=== PATIENT | female | born 1945 | race Asian ===

== ENCOUNTER → 2020-05-22 14:38 | Outpatient (BNVA) | payer MEDICAID, SELFPAY | PROVIDERS: PCP Internal Medicine; Referring Provider Internal Medicine; Visit Provider Internal Medicine Pulmonary Disease | DX: R05 Cough (principal) | CPT/HCPCS: 99203 ==

== ENCOUNTER → 2020-06-05 09:52 | Outpatient (BNVA) | payer MEDICAID, SELFPAY | PROVIDERS: Visit Provider Internal Medicine Pulmonary Disease | DX: R05 Cough (principal) | CPT/HCPCS: 99213 ==

== ENCOUNTER → 2020-06-10 16:02 | Outpatient (BNVA) | payer MEDICAID, SELFPAY | PROVIDERS: Visit Provider Internal Medicine | DX: R05 Cough (principal); I10 Essential (primary) hypertension; K21.9 Gastro-esophageal reflux disease without esophagitis; Z79.899 Other long term (current) drug therapy; Z79.51 Long term (current) use of inhaled steroids | CPT/HCPCS: 99212 ==

== ENCOUNTER → 2020-07-01 13:46 | Outpatient (BNVA) | payer MEDICAID, SELFPAY | PROVIDERS: PCP Internal Medicine; Visit Provider Internal Medicine Pulmonary Disease | DX: R05 Cough (principal); Z79.899 Other long term (current) drug therapy | CPT/HCPCS: 99212 ==

== ENCOUNTER 2020-07-22 09:04 | Outpatient (REF) | payer MEDICAID, SELFPAY | END 2020-07-22 09:05 | disposition home or self-care (01) | LOC: HO.RESP 09:04 | PROVIDERS: Visit Provider Internal Medicine Pulmonary Disease | DX: Z13.89 Encounter for screening for other disorder (principal) ==

== ENCOUNTER → 2020-09-02 11:58 | Outpatient (BNVA) | payer MEDICAID, SELFPAY | PROVIDERS: PCP Internal Medicine; Visit Provider Internal Medicine Pulmonary Disease ==

== ENCOUNTER 2020-09-20 07:49 | Outpatient (REF) | payer MEDICAID, SELFPAY ==
[2020-09-20 08:43] LABS: MANUAL DIFF FLAG NO
[2020-09-20 08:50] LABS: Basophils Percent Auto 0.7 % (0-2); Eosinophils Absolute Auto 0.1 X10*3/uL (0.0-0.4); Eosinophils Percent Auto 2.4 % (0-4); Hematocrit 41.6 % (37-47); Hemoglobin 13.6 g/dl (12.0-16.0); Imm Gran Abs Auto 0.01 X10*3/uL (0.00-0.03); Imm Gran Pct Auto 0.2 % (0.0-0.4); Lymphocytes Absolute Auto 2.5 X10*3/uL (1.2-4.9); Lymphocytes Percent Auto 42.9 % (20-40); Mean Corpuscular HGB Conc 32.7 g/dl (31.0-35.0); Mean Corpuscular Hemoglobin 28.3 pg (27.0-33.0); Mean Corpuscular Volume 86.5 fL (80-98); Mean Platelet Volume 9.4 fL (9.4-12.3); Monocytes Absolute Auto 0.6 X10*3/uL (0.1-1.2); Monocytes Percent Auto 9.5 % (2-11); Neutrophils Absolute Auto 2.6 X10*3/uL (2.0-8.3); Neutrophils Percent Auto 44.3 % (45-73); Platelet Count 248 X10*3/uL (160-400); Red Blood Count 4.81 X10*6/uL (4.20-5.50); Red Cell Distribution Width 13.2 % (11.0-16.0); White Blood Count 5.8 X10*3/uL (4.8-10.8)
[2020-09-20 09:11] LABS: Alanine Aminotransferase 20 U/L (0-31); Albumin Level 4.3 g/dL (3.5-5.0); Alkaline Phosphatase 74 U/L (39-117); Anion Gap 15 (12-20); Aspartate Amino Transferase 18 U/L (5-31); Bilirubin Total 0.7 mg/dL (0.0-1.0); Blood Urea Nitrogen 13 mg/dL (9-16); Calcium 9.4 mg/dL (8.4-10.2); Carbon Dioxide 25 mmol/L (22-29); Chloride 106 mmol/L (96-108); Cholesterol 159 mg/dL; Estimated Glomerular Filt Rate > 60; Glucose Fasting 103 mg/dL (60-99); HDL Cholesterol 33 mg/dL; LDL Cholesterol Calculated 109 mg/dl; Potassium 4.1 mmol/L (3.3-5.1); Sodium 142 mmol/L (135-145); Total Protein 7.1 g/dL (6.5-8.0); Triglycerides 86 mg/dL
== END 2020-09-20 07:50 | disposition home or self-care (01) ==
LOC: HO.LAB 07:49
PROVIDERS: PCP Internal Medicine; Visit Provider Internal Medicine
DX: E03.8 Other specified hypothyroidism (principal); E78.00 Pure hypercholesterolemia, unspecified; R05 Cough
CPT/HCPCS: 36415; 80053; 80061; 82306; 84443; 85025

== ENCOUNTER → 2020-11-20 11:41 | Outpatient (BNVA) | payer MEDICAID, SELFPAY | PROVIDERS: PCP Internal Medicine; Visit Provider Internal Medicine Pulmonary Disease ==

== ENCOUNTER → 2020-11-25 14:18 | Outpatient (BNVA) | payer MEDICAID, SELFPAY | PROVIDERS: PCP Internal Medicine; Visit Provider Internal Medicine ==

== ENCOUNTER → 2020-12-23 15:41 | Outpatient (BNVA) | payer MEDICAID, SELFPAY | PROVIDERS: PCP Internal Medicine; Visit Provider Internal Medicine ==

== ENCOUNTER 2021-01-26 07:45 | Day surgery (SDC) | payer MEDICAID, SELFPAY ==
[2021-01-20 15:41] VITALS: BMI 29.0
--- NOTE | 2021-01-21 13:13 | MHC.SHP ---
Pre-Procedural Eval Section A The patient is an INPATIENT: No The History & Physical has been completed within 30 days and I have reviewed it.: Yes Section B Chief Complaint: Cataracts Right Eye Allergies: Allergies Allergy/AdvReac Type Severity Reaction Status Date / Time No Known Allergies Allergy Verified 01/20/21 15:22 Plan Diagnosis/Plan: Unchanged I have reviewed the history and physical and performed a pertinent physical examination on my patient. No changes have occurred unless specified.
--- NOTE | 2021-01-23 09:19 | HO.ANESPROP2 ---
Documented by User: Rebecca Brunner 01/23/21 09:20 HPI - Anesthesia Eval Consult details Narrative: 75yo F for Right Cataract Extraction IOL Insertion PCP cleared No prev cataract on record PMFSH Active Problems Active Problems: All Active Problems (Updated 01/20/21 @ 15:46 by Inez Ray) Chronic cough (Acute) Dysphagia (Acute) Bronchitis (Acute) Allergic rhinitis (Acute) GERD (gastroesophageal reflux disease) (Acute) Hypertension (Acute) Past Medical History Medical History Allergic rhinitis Bronchitis COVID-19 vaccine series completed Elevated cholesterol GERD (gastroesophageal reflux disease) Hypertension Hypothyroid Surgical History Surgical History No significant past surgical history Social History Social History Are you a primary student career development specialist to a significant other at home: No Do you presently have visiting nurse or other home services: No Patient Tobacco Use Status: Never used Tobacco Second Hand Smoke Exposure: No Use of substances other than those prescribed or required for medical reasons: No Have you been hit, kicked, punched, or otherwise hurt by someone within the past year? If so, by whom?: No Are you DNR?: No Advance Directives: No Advance Directives Information Provided: No Advance Directives on File: No Recently lost weight without trying: No Eating poorly because of decreased appetite: No Nutrition Risks: No Nutritional Risk Patient : No Meds Allergies Allergy/AdvReac Type Severity Reaction Status Date / Time No Known Allergies Allergy Verified 01/20/21 15:22 Home Medications Medication Instructions Recorded Confirmed Last Taken Type albuterol sulfate 90 mcg/actuation 1 inh INHALATION QID 05/22/20 01/20/21 Unknown History aerosol inhaler amlodipine 5 mg tablet 5 mg PO DAILY 05/22/20 01/20/21 Unknown History atorvastatin 20 mg tablet 20 mg PO DAILY 05/22/20 01/20/21 Unknown History cholecalciferol (vitamin D3) 1,250 1,250 mcg PO QWEEK 05/22/20 01/20/21 Unknown History mcg (50,000 unit) capsule fluticasone furoate 50 INHALATION 05/22/20 Unknown History mcg/actuation blister powder for inhalation levothyroxine 75 mcg tablet 75 mcg PO DAILY 05/22/20 01/26/21 01/26/21 History uwkcpbcwybqj-Oh-cllk-minerals 1 tab PO DAILY 05/22/20 01/20/21 Unknown History fluticasone propionate 1 spray INTRANASAL BID 01/20/21 01/20/21 Unknown History loratadine [Allergy Relief 1 tab PO DAILY 01/20/21 01/20/21 Unknown History (loratadine)] Exam Exam Date and Time: January 23, [id number] Height,Weight and Vital Signs: Height 5 ft 3 in Weight 74.389 kg Assessment and Plan Assessment Anesthesia Assessment: Chart Reviewed Documented by User: Ken Lopez 01/26/21 08:39 PMFSH Past Medical History Medical History Allergic rhinitis Bronchitis COVID-19 vaccine series completed Elevated cholesterol GERD (gastroesophageal reflux disease) Hypertension Hypothyroid Surgical History Surgical History No significant past surgical history Social History Social History Are you a primary student career development specialist to a significant other at home: No Do you presently have visiting nurse or other home services: No Patient Tobacco Use Status: Never used Tobacco Second Hand Smoke Exposure: No Use of substances other than those prescribed or required for medical reasons: No Have you been hit, kicked, punched, or otherwise hurt by someone within the past year? If so, by whom?: No Are you DNR?: No Advance Directives: No Advance Directives Information Provided: No Advance Directives on File: No Recently lost weight without trying: No Eating poorly because of decreased appetite: No Nutrition Risks: No Nutritional Risk Patient : No Meds Allergies Allergy/AdvReac Type Severity Reaction Status Date / Time No Known Allergies Allergy Verified 01/20/21 15:22 Home Medications Medication Instructions Recorded Confirmed Last Taken Type albuterol sulfate 90 mcg/actuation 1 inh INHALATION QID 05/22/20 01/20/21 Unknown History aerosol inhaler amlodipine 5 mg tablet 5 mg PO DAILY 05/22/20 01/20/21 Unknown History atorvastatin 20 mg tablet 20 mg PO DAILY 05/22/20 01/20/21 Unknown History cholecalciferol (vitamin D3) 1,250 1,250 mcg PO QWEEK 05/22/20 01/20/21 Unknown History mcg (50,000 unit) capsule fluticasone furoate 50 INHALATION 05/22/20 Unknown History mcg/actuation blister powder for inhalation levothyroxine 75 mcg tablet 75 mcg PO DAILY 05/22/20 01/26/21 01/26/21 History uodomneaamdz-Qq-nnwb-minerals 1 tab PO DAILY 05/22/20 01/20/21 Unknown History fluticasone propionate 1 spray INTRANASAL BID 01/20/21 01/20/21 Unknown History loratadine [Allergy Relief 1 tab PO DAILY 01/20/21 01/20/21 Unknown History (loratadine)] Exam Airway Mallampati Class: II TM Dist: >3cm Neck ROM: Full Denture: Upper and Lower Heart: [id number]+[id number] Lungs: cta b/l Assessment and Plan Assessment Anesthesia Assessment: Anesthesia Plan Discussed, PAT Visit and Chart Reviewed Final Anesthetic Review NPO: Yes ASA Class: III Final Preanesthetic Review: No Changes in Pt Med Stat, Meds/Allgs Chart Reviewed, Consent Obtained/Reviewed and Anes Risks/Benef Reviewed Patient Risk: Intermediate Procedure Risk: Low Assessment/Block/Sedation in SS: Assess/Block/Sedation-SS Anesthetic Plan Anesthetic Plan: MAC: and Agree w/ Assess. and Plan Disposition: Standard PACU
[2021-01-26 08:35] VITALS: BP 175/99; PULSE 86; RESP 16; TEMP 36.8; O2SAT 98
[2021-01-26] MEDS: Tetracaine HCl/PF 0.5% Oph Sol 4 ML DROPS 1 DROP EYE-RIGHT (08:42)
[2021-01-26] MEDS: Lactated Ringers 500 ML 50 ML IV (08:43)
[2021-01-26] MEDS: Tropicamide 1 % Ophth Sol 3 ML BTL 1 DROP EYE-RIGHT ×3 (08:44→09:02)
[2021-01-26] MEDS: Phenylephrine HCL 2.5% Oph SoL 2 ML BOTTLE 1 DROP EYE-RIGHT ×3 (08:51→09:05)
--- NOTE | 2021-01-26 09:25 | HO.PNOPHT ---
Ophthalmology Procedure Procedure Date of Service: 01/26/21 Ophthalmology Viscoelastic: Healbettie Prajapatit Dual Pack Pro Ophthalmology Lenses: TECILIANA [id number] (23) Procedure Notes: PREOPERATIVE DIAGNOSIS: Decreased visual acuity right eye secondary to cataract POSTOPERATIVE DIAGNOSIS: Same PROCEDURE: Right cataract extraction with intraocular lens insertion SURGEON: Guanaco Shrestha M.D. ANESTHESIA: Topical/MAC ESTIMATED BLOOD LOSS: None COMPLICATIONS: None After obtaining informed consent, the patient was brought to the operating room suite and placed in the supine position. After adequate sedation per anesthesia, topical drops of Tetracaine were given to the right eye. The eye was then prepped and draped in the usual sterile fashion. The operating room microscope was then positioned over the operative eye and a lid speculum placed. A paracentesis was created. Viscoelastic was then instilled into the anterior chamber. A three plane incision was then created temporally, utilizing a 2.85 mm keratome. Capsulotomy forceps were then utilized to create a circular tear capsulotomy. Hydrodissection and hydrodelineation were carried out until adequate mobilization of the nucleus occurred. Phacoemulsification was then utilized to remove the dense central nucleus followed by removal of the cortical material utilizing the automated aspiration irrigation unit. Viscoelastic was instilled into the posterior capsular bag followed by placement of a posterior chamber intraocular lens without difficulty. The residual Viscoelastic was then removed utilizing the automated IA machine. The wound was checked and found to be watertight. The patient tolerated the procedure well and the lid speculum was removed. Intracameral injection of Vigamox 0.1 mL followed by a subtenon injection of Kenalog-40 0.2 mL were administered. The patient will be seen in the a.m.
[2021-01-26 09:47] VITALS: BP 161/87; PULSE 83; RESP 16; TEMP 36.4; O2SAT 98
== END 2021-01-26 10:00 | disposition home or self-care (01) ==
PROVIDERS: PCP Internal Medicine; Visit Provider Ophthalmology
PROC: (CPT 66985; principal; 2021-01-26 10:10)
DX: H25.11 Age-related nuclear cataract, right eye (principal); I10 Essential (primary) hypertension
CPT/HCPCS: 66984; J2250; J3010; J3300; V2632

== ENCOUNTER 2021-02-09 08:48 | Day surgery (SDC) | payer MEDICAID, SELFPAY ==
[2021-01-20 15:48] VITALS: BMI 28.1
--- NOTE | 2021-02-05 07:33 | MHC.SHP ---
Pre-Procedural Eval Section A The patient is an INPATIENT: No The History & Physical has been completed within 30 days and I have reviewed it.: Yes Section B Chief Complaint: Cataract Left Eye Relevant Family History (Specify if Yes): No Allergies: Allergies Allergy/AdvReac Type Severity Reaction Status Date / Time No Known Allergies Allergy Verified 01/20/21 15:22 Plan Diagnosis/Plan: Unchanged I have reviewed the history and physical and performed a pertinent physical examination on my patient. No changes have occurred unless specified.
[2021-02-09 09:41] VITALS: BP 152/85; PULSE 79; RESP 16; TEMP 36.4; O2SAT 98
[2021-02-09] MEDS: Tetracaine HCl/PF 0.5% Oph Sol 4 ML DROPS 1 DROP EYE-LEFT (09:42)
[2021-02-09] MEDS: Tropicamide 1 % Ophth Sol 3 ML BTL 1 DROP EYE-LEFT ×3 (09:43→09:58)
[2021-02-09] MEDS: Phenylephrine HCL 2.5% Oph SoL 2 ML BOTTLE 1 DROP EYE-LEFT ×3 (09:48→10:08)
--- NOTE | 2021-02-09 10:01 | P.CONAN_ITS ---
[facility] Active Problems Active Problems: All Active Problems (Updated 01/20/21 @ 15:46 by Inez ellis) Chronic cough (Acute) Dysphagia (Acute) Bronchitis (Acute) Allergic rhinitis (Acute) GERD (gastroesophageal reflux disease) (Acute) Hypertension (Acute) Past Medical History Medical History Allergic rhinitis Bronchitis COVID-19 vaccine series completed Elevated cholesterol GERD (gastroesophageal reflux disease) Hypertension Hypothyroid Surgical History Surgical History No significant past surgical history Social History Social History Are you a primary respiratory care program director to a significant other at home: No Do you presently have visiting nurse or other home services: No Patient Tobacco Use Status: Never used Tobacco Second Hand Smoke Exposure: No Use of substances other than those prescribed or required for medical reasons: No Have you been hit, kicked, punched, or otherwise hurt by someone within the past year? If so, by whom?: No Are you DNR?: No Advance Directives: No Advance Directives Information Provided: No Advance Directives on File: No Recently lost weight without trying: No Eating poorly because of decreased appetite: No Nutrition Risks: No Nutritional Risk Patient : No Meds Allergies Allergy/AdvReac Type Severity Reaction Status Date / Time No Known Allergies Allergy Verified 01/20/21 15:22 Active Medications: Current Medications Generic Name Dose Route Start Last Admin Trade Name Freq PRN Reason Stop Dose Admin Povidone Iodine 1 appl 02/09/21 09:23 Povidone Iodine 5 % Oph Soln 30 Ml Bottle EYE-LEFT PREOP PRN Pre-Op Surgical Implant Prophy Home Medications Medication Instructions Recorded Confirmed Last Taken Type albuterol sulfate 90 mcg/actuation 1 inh INHALATION QID 05/22/20 01/20/21 Unknown History aerosol inhaler amlodipine 5 mg tablet 5 mg PO DAILY 05/22/20 01/20/21 Unknown History atorvastatin 20 mg tablet 20 mg PO DAILY 05/22/20 01/20/21 Unknown History cholecalciferol (vitamin D3) 1,250 1,250 mcg PO QWEEK 05/22/20 01/20/21 Unknown History mcg (50,000 unit) capsule fluticasone furoate 50 INHALATION 05/22/20 Unknown History mcg/actuation blister powder for inhalation levothyroxine 75 mcg tablet 75 mcg PO DAILY 05/22/20 01/26/21 02/09/21 05:30 History ogapzontfnxk-Ix-olpm-minerals 1 tab PO DAILY 05/22/20 01/20/21 Unknown History fluticasone propionate 1 spray INTRANASAL BID 01/20/21 01/20/21 Unknown History loratadine [Allergy Relief 1 tab PO DAILY 01/20/21 01/20/21 Unknown History (loratadine)] Exam Exam Date and Time: February 09, 2021 1001 Height,Weight and Vital Signs: Height 5 ft 4 in Weight 74.389 kg Last Vital Signs Temp 97.5 F 02/09/21 09:41 Pulse 79 02/09/21 09:41 Resp 16 02/09/21 09:41 BP 152/85 H 02/09/21 09:41 Pulse Ox 98 02/09/21 09:41 Airway Mallampati Class: II TM Dist: >3cm Neck ROM: Full Denture: Upper and Lower Heart: rrr Lungs: cta Assessment and Plan Assessment Anesthesia Assessment: Anesthesia Plan Discussed and Chart Reviewed Final Anesthetic Review NPO: Yes ASA Class: III Final Preanesthetic Review: No Changes in Pt Med Stat and Consent Obtained/Reviewed Patient Risk: Intermediate Procedure Risk: Intermediate Anesthetic Plan Anesthetic Plan: MAC: Disposition: Standard PACU
[2021-02-09] MEDS: Lactated Ringers 500 ML 50 ML IV (10:09)
--- NOTE | 2021-02-09 10:20 | P.CONAN_ITS ---
[facility] Active Problems Active Problems: All Active Problems (Updated 01/20/21 @ 15:46 by Inez ellis) Chronic cough (Acute) Dysphagia (Acute) Bronchitis (Acute) Allergic rhinitis (Acute) GERD (gastroesophageal reflux disease) (Acute) Hypertension (Acute) Past Medical History Medical History Allergic rhinitis Bronchitis COVID-19 vaccine series completed Elevated cholesterol GERD (gastroesophageal reflux disease) Hypertension Hypothyroid Surgical History Surgical History No significant past surgical history Social History Social History Are you a primary healthcare facility administrator to a significant other at home: No Do you presently have visiting nurse or other home services: No Patient Tobacco Use Status: Never used Tobacco Second Hand Smoke Exposure: No Use of substances other than those prescribed or required for medical reasons: No Have you been hit, kicked, punched, or otherwise hurt by someone within the past year? If so, by whom?: No Are you DNR?: No Advance Directives: No Advance Directives Information Provided: No Advance Directives on File: No Recently lost weight without trying: No Eating poorly because of decreased appetite: No Nutrition Risks: No Nutritional Risk Patient : No Meds Allergies Allergy/AdvReac Type Severity Reaction Status Date / Time No Known Allergies Allergy Verified 01/20/21 15:22 Active Medications: Current Medications Generic Name Dose Route Start Last Admin Trade Name Freq PRN Reason Stop Dose Admin Lactated Ringer's 500 mls @ 50 mls/hr 02/09/21 10:15 02/09/21 10:09 Lr IV 02/09/21 20:14 50 mls/hr .Q10H FE Administration Povidone Iodine 1 appl 02/09/21 09:23 Povidone Iodine 5 % Ophth Soln 30 Ml Bottle EYE-LEFT PREOP PRN Pre-Op Surgical Implant Prophy Home Medications Medication Instructions Recorded Confirmed Last Taken Type albuterol sulfate 90 mcg/actuation 1 inh INHALATION QID 05/22/20 01/20/21 Unknown History aerosol inhaler amlodipine 5 mg tablet 5 mg PO DAILY 05/22/20 01/20/21 Unknown History atorvastatin 20 mg tablet 20 mg PO DAILY 05/22/20 01/20/21 Unknown History cholecalciferol (vitamin D3) 1,250 1,250 mcg PO QWEEK 05/22/20 01/20/21 Unknown History mcg (50,000 unit) capsule fluticasone furoate 50 INHALATION 05/22/20 Unknown History mcg/actuation blister powder for inhalation levothyroxine 75 mcg tablet 75 mcg PO DAILY 05/22/20 01/26/21 02/09/21 05:30 History azjnpdtyqfgw-Jp-gbre-minerals 1 tab PO DAILY 05/22/20 01/20/21 Unknown History fluticasone propionate 1 spray INTRANASAL BID 01/20/21 01/20/21 Unknown History loratadine [Allergy Relief 1 tab PO DAILY 01/20/21 01/20/21 Unknown History (loratadine)] Exam Exam Date and Time: February 09, 2021 1020 Height,Weight and Vital Signs: Height 5 ft 4 in Weight 74.389 kg Last Vital Signs Temp 97.5 F 02/09/21 09:41 Pulse 79 02/09/21 09:41 Resp 16 02/09/21 09:41 BP 152/85 H 02/09/21 09:41 Pulse Ox 98 02/09/21 09:41 Airway Mallampati Class: II (Missing top front tooth, poor dentition) TM Dist: >3cm Neck ROM: Full Heart: rrr Lungs: cta Assessment and Plan Assessment Anesthesia Assessment: Anesthesia Plan Discussed and Chart Reviewed Final Anesthetic Review NPO: Yes ASA Class: III Final Preanesthetic Review: No Changes in Pt Med Stat and Consent Obtained/Reviewed Patient Risk: Intermediate Procedure Risk: Intermediate Anesthetic Plan Anesthetic Plan: MAC: Disposition: Standard PACU
--- NOTE | 2021-02-09 11:42 | HO.PNOPHT ---
Ophthalmology Procedure Procedure Date of Service: 02/09/21 Ophthalmology Viscoelastic: Healon Duet Dual Pack Pro Ophthalmology Lenses: TECNIS [id number] (23.5) Procedure Notes: PREOPERATIVE DIAGNOSIS: Decreased visual acuity left eye secondary to cataract POSTOPERATIVE DIAGNOSIS: Same PROCEDURE: Left cataract extraction with intraocular lens insertion SURGEON: Guanaco Shrestha M.D. ANESTHESIA: Topical/MAC ESTIMATED BLOOD LOSS: None COMPLICATIONS: None After obtaining informed consent, the patient was brought to the operation room suite and placed in the supine position. After adequate sedation per anesthesia, topical drops of Tetracaine were given to the left eye. The eye was then prepped and draped in the usual sterile fashion. The operating room microscope was then positioned over the operative eye and a lid speculum placed. A paracentesis was created. Viscoelastic was then instilled into the anterior chamber. A three plane incision was then created temporally, utilizing a 2.85 mm keratome. Capsulotomy forceps were then utilized to create a circular tear capsulotomy. Hydrodissection and hydrodelineation were carried out until adequate mobilization of the nucleus occurred. Phacoemulsification was then utilized to remove the dense central nucleus followed by removal of the cortical material utilizing the automated aspiration irrigation unit. Viscoat elastic was instilled into the posterior capsular bag followed by placement of a posterior chamber intraocular lens without difficulty. The residual Viscoat elastic was then removed utilizing the automated IA machine. The wound was check and found to be watertight. The patient tolerated the procedure well and the lid speculum was removed. Intracameral injection of Vigamox 0.1 mL followed by a subtenon injection of Kenalog-40 0.2 mL were administered. The patient will be seen in the a.m.
[2021-02-09 12:05] VITALS: BP 136/79; PULSE 81; RESP 16; TEMP 36.6; O2SAT 97
== END 2021-02-09 12:24 | disposition home or self-care (01) ==
PROVIDERS: PCP Internal Medicine; Visit Provider Ophthalmology
PROC: (CPT 66985; principal; 2021-02-09 10:50)
DX: H25.12 Age-related nuclear cataract, left eye (principal); H54.7 Unspecified visual loss; J40 Bronchitis, not specified as acute or chronic; J30.89 Other allergic rhinitis; I10 Essential (primary) hypertension; E03.9 Hypothyroidism, unspecified; Z79.899 Other long term (current) drug therapy
CPT/HCPCS: 66984; J2250; J3010; J3300; V2632

== ENCOUNTER 2021-02-18 09:26 | Outpatient (REF) | payer MEDICAID, SELFPAY ==
--- NOTE | ~2021-02-18 | FL_ITS ---
EXAMINATION: FL BARIUM SWALLOW CLINICAL INFORMATION: Cervical dysphagia. COMPARISON: Chest radiographs 03/26/2020 TECHNIQUE: Barium swallow examination is performed using fluoroscopic evaluation in addition to multiple fluoroscopic spot views, including cine images during swallowing. The patient is imaged both upright and prone and using both thick and thin sulfate along with effervescent granules. Imaging also performed during swallowing barium tablet. Fluoroscopy time: 1.8 minutes DAP: 4.353 Gycm2 Images: 71 (this includes cine images and additional loops to address minor language barriers). FINDINGS: Swallowing function is normal and there is no aspiration. The cervical esophagus has no web or diverticulum or stricture. The cervical thoracic junction appears normal. There is no significant retention of contrast in the performed sinuses or vallecula after swallowing. The thoracic esophagus shows normal motility with no obstruction, stricture, or ulceration. There is decreased primary peristalsis with prone imaging but without tertiary contractions. There is no hiatal hernia or reflux seen during fluoroscopy. A cursory view of the upper abdomen shows no gastric outlet obstruction. Testing with barium tablet with patient upright shows prompt transit from mouth to stomach without delay. FL/FL barium swallow IMPRESSION: 1. Decreased primary peristalsis with prone imaging. No tertiary contractions. 2. Otherwise unremarkable exam. No aspiration, Zenker diverticulum, stricture. 3. No hiatal hernia or reflux demonstrated during fluoroscopy. 4. Prompt passage of barium tablet.
== END 2021-02-18 09:27 | disposition home or self-care (01) ==
LOC: HO.XRAY 09:26
PROVIDERS: PCP Internal Medicine; Visit Provider Internal Medicine
DX: R13.14 Dysphagia, pharyngoesophageal phase (principal); R05 Cough
CPT/HCPCS: 74220

== ENCOUNTER 2021-02-23 10:48 | Day surgery (SDC) | payer MEDICAID, SELFPAY ==
[2021-02-18 15:50] VITALS: BMI 25.2
--- NOTE | 2021-02-20 08:19 | HO.ANESPROP2 ---
Documented by User: Rebecca Brunner 02/20/21 08:19 HPI - Anesthesia Eval Consult details Narrative: 75yo F for Upper Endoscopy PMFSH Active Problems Active Problems: All Active Problems (Updated 01/20/21 @ 15:46 by Inez Ray) Chronic cough (Acute) Dysphagia (Acute) Bronchitis (Acute) Allergic rhinitis (Acute) GERD (gastroesophageal reflux disease) (Acute) Hypertension (Acute) Past Medical History Medical History Allergic rhinitis Bronchitis COVID-19 vaccine series completed Elevated cholesterol GERD (gastroesophageal reflux disease) Hypertension Hypothyroid Surgical History Surgical History H/O bilateral cataract extraction Social History Social History Are you a primary memory care director to a significant other at home: No Do you presently have visiting nurse or other home services: No Patient Tobacco Use Status: Never used Tobacco Second Hand Smoke Exposure: No Use of substances other than those prescribed or required for medical reasons: No Are you DNR?: No Advance Directives: No Advance Directives Information Provided: No Advance Directives on File: No Meds Allergies Allergy/AdvReac Type Severity Reaction Status Date / Time No Known Allergies Allergy Verified 02/23/21 12:06 Home Medications Medication Instructions Recorded Confirmed Last Taken Type albuterol sulfate 90 mcg/actuation 1 inh INHALATION QID 05/22/20 02/18/21 Unknown History aerosol inhaler amlodipine 5 mg tablet 5 mg PO DAILY 05/22/20 02/18/21 Unknown History atorvastatin 20 mg tablet 20 mg PO DAILY 05/22/20 02/18/21 Unknown History cholecalciferol (vitamin D3) 1,250 1,250 mcg PO QWEEK 05/22/20 02/18/21 Unknown History mcg (50,000 unit) capsule fluticasone furoate 50 INHALATION 05/22/20 Unknown History mcg/actuation blister powder for inhalation levothyroxine 75 mcg tablet 75 mcg PO DAILY 05/22/20 02/18/21 02/23/21 06:00 History madkqlneafgb-Io-xmms-minerals 1 tab PO DAILY 05/22/20 02/18/21 Unknown History fluticasone propionate 1 spray INTRANASAL BID 01/20/21 02/18/21 Unknown History loratadine [Allergy Relief 1 tab PO DAILY 01/20/21 02/18/21 Unknown History (loratadine)] Exam Exam Date and Time: February 20, [id number] Height,Weight and Vital Signs: Height 5 ft 6 in Weight 70.76 kg Assessment and Plan Assessment Anesthesia Assessment: Chart Reviewed Documented by User: Rosa Menon 02/23/21 14:35 PMFSH Past Medical History Medical History Allergic rhinitis Bronchitis COVID-19 vaccine series completed Elevated cholesterol GERD (gastroesophageal reflux disease) Hypertension Hypothyroid Surgical History Surgical History H/O bilateral cataract extraction Social History Social History Are you a primary memory care director to a significant other at home: No Do you presently have visiting nurse or other home services: No Patient Tobacco Use Status: Never used Tobacco Second Hand Smoke Exposure: No Use of substances other than those prescribed or required for medical reasons: No Are you DNR?: No Advance Directives: No Advance Directives Information Provided: No Advance Directives on File: No Meds Allergies Allergy/AdvReac Type Severity Reaction Status Date / Time No Known Allergies Allergy Verified 02/23/21 12:06 Home Medications Medication Instructions Recorded Confirmed Last Taken Type albuterol sulfate 90 mcg/actuation 1 inh INHALATION QID 05/22/20 02/18/21 Unknown History aerosol inhaler amlodipine 5 mg tablet 5 mg PO DAILY 05/22/20 02/18/21 Unknown History atorvastatin 20 mg tablet 20 mg PO DAILY 05/22/20 02/18/21 Unknown History cholecalciferol (vitamin D3) 1,250 1,250 mcg PO QWEEK 05/22/20 02/18/21 Unknown History mcg (50,000 unit) capsule fluticasone furoate 50 INHALATION 05/22/20 Unknown History mcg/actuation blister powder for inhalation levothyroxine 75 mcg tablet 75 mcg PO DAILY 05/22/20 02/18/21 02/23/21 06:00 History oehmgguxdrvd-Fz-saon-minerals 1 tab PO DAILY 05/22/20 02/18/21 Unknown History fluticasone propionate 1 spray INTRANASAL BID 01/20/21 02/18/21 Unknown History loratadine [Allergy Relief 1 tab PO DAILY 01/20/21 02/18/21 Unknown History (loratadine)] Exam Airway Mallampati Class: II (Edentulous) TM Dist: >3cm Neck ROM: Full Loose/Missing/Broken Teeth: Yes, Upper and Lower Heart: RRR Lungs: CTA Assessment and Plan Assessment Anesthesia Assessment: Anesthesia Plan Discussed and Chart Reviewed Final Anesthetic Review NPO: Yes ASA Class: II Final Preanesthetic Review: Meds/Allgs Chart Reviewed, Consent Obtained/Reviewed and Anes Risks/Benef Reviewed Patient Risk: Low Procedure Risk: Intermediate Anesthetic Plan Anesthetic Plan: MAC: Disposition: Standard PACU
[2021-02-23 12:21] VITALS: BP 141/89; PULSE 107; RESP 18; TEMP 36.9; O2SAT 98
[2021-02-23] MEDS: Lactated Ringers 1,000 ML 100 ML IVCONT (12:29)
[2021-02-23 14:40] VITALS: BP 108/66; PULSE 88; RESP 18; TEMP 36.2; O2SAT 100
--- NOTE | 2021-02-23 14:45 | P.BOP_ITS ---
Brief Operative Note Date of Service: 02/23/21 Pre-op diagnosis: Coughing/Dysphagia Post-op diagnosis: other (Hiatal hernia, GERD, R/O EOE) Procedure: EGD with biopsies Surgeon: Girish Viramontes Anesthesia: MAC Was an Gun Synchronizer used for this Procedure?: No Estimated blood loss (mL): 3.0 Pathology: other (A. EG Junction at 35 cm B. Esophagus at 25cm) Condition: stable Disposition: PACU
[2021-02-23 14:55] VITALS: BP 128/81; PULSE 90; RESP 18; O2SAT 98
--- NOTE | 2021-02-23 15:07 | OP_ITS ---
SURGEON: Girish Viramontes MD INDICATIONS: Full consent has been obtained from her for this, including risks of bleeding and perforation. PREOPERATIVE DIAGNOSIS: POSTOPERATIVE DIAGNOSIS: PROCEDURE PERFORMED: Esophagogastroduodenoscopy with biopsies. ESTIMATED BLOOD LOSS: COMPLICATIONS: ANESTHESIA: Monitored anesthesia care. ASSISTANTS: SPECIMENS: PREOPERATIVE DIAGNOSES: Dysphagia and coughing. POSTOPERATIVE DIAGNOSES: Dysphagia and coughing, hiatal hernia, gastroesophageal reflux, rule out eosinophilic esophagitis. DESCRIPTION OF PROCEDURE: The patient was placed in the left lateral decubitus position. The Olympus video gastroscope was passed in the posterior oropharynx and upper esophagus under direct vision. The scope was passed slowly into the distal esophagus. The gastroesophageal junction appeared at 35 cm. There was some slight irregularity consistent with reflux, but no esophagitis nor any definitive evidence of Wolff's mucosa. The scope entered into the stomach. There was a small hiatal hernia. The scope was advanced to the pylorus and the duodenum was cannulated to the descending portion. The duodenum including the bulb appeared normal without mass or ulceration. The scope was withdrawn back into the stomach. The gastric antrum and body appeared normal with good peristalsis. The scope was retroflexed visualizing the proximal stomach carefully, which appeared normal, without any sign of mass or ulceration. The scope was straightened out and withdrawn back into the esophagus. Biopsies were obtained at the EG junction at 35 cm. Proximal to this, the esophageal mucosa appeared normal, without any sign of strictures, rings, nor webs. There were no proximal esophageal mucosal abnormalities. Biopsies were obtained at 25 cm to rule out eosinophilic esophagitis. The scope was withdrawn from the patient. She tolerated the procedure well and was returned to the recovery area in stable condition. IMPRESSION: 1. Small hiatal hernia, gastroesophageal reflux. 2. Rule out eosinophilic esophagitis. PLAN: The results of the biopsies will be checked. She has been advised to continue her omeprazole. I did remind her that she should be seen by Ear, Nose, and Throat physician if the coughing persists. The recent barium swallow was unremarkable in regard to any sign of Zenker's diverticulum nor any other abnormality. If the biopsies are nonrevealing and she is feeling well, she could see me again on a p.r.n. basis. This has been discussed with her son. MD PACHECO Carr/TEO / [id number]
== END 2021-02-23 15:20 | disposition home or self-care (01) ==
PROVIDERS: PCP Internal Medicine; Visit Provider Internal Medicine
PROC: 0DJ08ZZ Inspection of Upper Intestinal Tract, Via Natural or Artificial Opening Endoscopic (ICD-10-PCS; CPT 43235; principal; 2021-02-23 12:40)
DX: R13.10 Dysphagia, unspecified (principal); R05 Cough; K44.9 Diaphragmatic hernia without obstruction or gangrene; K21.9 Gastro-esophageal reflux disease without esophagitis; J30.9 Allergic rhinitis, unspecified; I10 Essential (primary) hypertension; E03.9 Hypothyroidism, unspecified; Z79.51 Long term (current) use of inhaled steroids; Z79.899 Other long term (current) drug therapy
CPT/HCPCS: 43239; 88305